=== PATIENT | male | born 1965 | race Caucasian/White ===

== ENCOUNTER 2020-10-17 09:44 | Inpatient (IN) | payer BC ==
[2020-10-17] VITALS (230 sets, daily range): BP systolic 98–163; BP diastolic 55–89; PULSE 138–164; TEMP 37.8; O2SAT 77–100
[~2020-10-17] VITALS: Ht 177.8 cm; Wt 77.3 kg
[~2020-10-17 09:44] MED LIST: CHANTIX 0.5MG0.5 MG PO; FISH OIL CONCEN1 SGL PO; GARLIC1 TAB PO; GINKO BILOBA120 MG PO; MULTIPLE VITAMI1 CAP PO; PRILOSEC10 MG; VITAMIN C PURE500 MG PO
[2020-10-17 10:10] LABS: HEMATOCRIT 38.3 % (42.0-52.0); HEMOGLOBIN 11.9 g/dl (13.5-18.0); MEAN CELL VOLUME 96 fl (80.0-100.0); MEAN CORPUSCULAR HEMOGLOBIN 30 pg (27.0-31.0); MEAN CORPUSCULAR HGB CONC 31 g/dl (33.0-37.0); MEAN PLATELET VOLUME 9.9 fl (7.4-10.4); PLATELET COUNT 224 K/mm3 (130-400); RED BLOOD COUNT 3.99 M/mm3 (4.20-5.60); REDCELL DISTRIBUTION WIDTH-CV 13.3 % (11.5-14.5)
--- NOTE | 2020-10-17 10:10 | NUR ---
SW note: Response to EMG SW gather patients identification from EMS SW made contact with Vida Clements. reports that the police called her to notify her of the patients attempt of SI. reports that she notified a friend and the patients co-worker/friend indicating a Rohit and Anuja. Spouse reports that she had no idea that the patient was contemplating SI. Information assimulated. address [address] [facility] [id number] BD: [id number] Interview with spouse will be recorded: in [place]
[2020-10-17 10:40] LABS: BAND 8 % (0-10); LYMPHOCYTE 28 % (20.0-51.0); METAMYELOCYTE 1 % (0-0); NEUTROPHILS 60 % (42.0-75.2)
[2020-10-17 10:43] LABS: HYPOCHROMIA 2+; PLATELET ESTIMATE NORMAL (NORMAL)
--- NOTE | 2020-10-17 10:53 | NUR ---
ORN notified of patient, referral number [id number].
--- NOTE | 2020-10-17 11:49 | NUR ---
Initial visit; Provided spiritual care to family when patient was brought in to Emergency Services. Laser/Electro Optics Technician offered comfort and prayer along with helping assist admissions gather additional information from patient's .
[2020-10-17 12:21] LABS: ALBUMIN 2.5 gm/dL (3.5-5.0); BILIRUBIN,TOTAL 0.3 mg/dL (0.0-1.0); CALCIUM 7.8 mg/dL (8.4-10.2); CREATININE, serum 1.51 (0.66-1.25); POTASSIUM 3.5 mmol/L (3.4-5.0); TOTAL PROTEIN 4.1 gm/dL (6.4-8.2)
--- NOTE | 2020-10-17 14:30 | NUR ---
IO CHENTE'D AT THIS TIME. PRESSURE DRESSING APPLIED.
[2020-10-17 14:55] LABS: ARTERIAL BLD GAS O2 SATURATION 91.5 % (92-100); ARTERIAL BLD GAS TCO2 CT 20.4; ARTERIAL BLOOD GAS HCO3 18.2 meq/L (22-26); ARTERIAL BLOOD GAS PO2 82.5 mmHg (80-100)
[2020-10-17 14:56] LABS: ARTERIAL BLOOD GAS PCO2 74.1 mmHg (35-45); ARTERIAL BLOOD GAS pH 7.01 (7.35-7.45)
[2020-10-17 16:08] LABS: ARTERIAL BLOOD GAS HCO3 18.4 meq/L (22-26); ARTERIAL BLOOD GAS PCO2 60.4 mmHg (35-45); ARTERIAL BLOOD GAS PO2 111.1 mmHg (80-100)
[2020-10-17 16:09] LABS: ARTERIAL BLD GAS O2 SATURATION 96.8 % (92-100); ARTERIAL BLD GAS TCO2 CT 20.3
[2020-10-17 16:46] LABS: HEMATOCRIT 22.2 % (42.0-52.0); HEMOGLOBIN 7.4 g/dl (13.5-18.0)
[2020-10-17 17:09] LABS: ARTERIAL BLD GAS O2 SATURATION 98.5 % (92-100); ARTERIAL BLD GAS TCO2 CT 17.5; ARTERIAL BLOOD GAS BASE EXCESS -10.1 (-2-2); ARTERIAL BLOOD GAS HCO3 16.3 meq/L (22-26); ARTERIAL BLOOD GAS PCO2 38.4 mmHg (35-45); ARTERIAL BLOOD GAS pH 7.25 (7.35-7.45)
[2020-10-17 17:10] LABS: ARTERIAL BLOOD GAS PO2 217.1 mmHg (80-100)
[2020-10-17 17:25] LABS: PARTIAL THROMBOPLASTIN TIME 45.2 SECONDS (26.0-37.0)
[2020-10-17 17:27] LABS: INR 1.8 (0.8-3.0); PROTHROMBIN TIME 20.4 SECONDS (9.7-12.8)
[2020-10-17 18:37] LABS: MAGNESIUM 2.7 mg/dL (1.6-2.3); PHOSPHOROUS 6.1 mg/dL (2.5-4.5)
[2020-10-17 18:56] LABS: COLLECTION METHOD CATHETER
[2020-10-17 19:23] LABS: MUCOUS Present /lpf; PH 5 (5-8); SQUAMOUS EPITHELIAL 0-2 /hpf; URINE APPEARANCE Cloudy; URINE BACTERIA Rare /hpf; URINE BILIRUBIN Negative (NEGATIVE); URINE BLOOD 3+ (NEGATIVE); URINE COLOR Yellow; URINE GLUCOSE Negative (NEGATIVE); URINE KETONE Negative (NEGATIVE); URINE LEUKOCYTE ESTERASE Negative (NEGATIVE); URINE NITRATE Negative (NEGATIVE); URINE PROTEIN(semi-quant) 1+ (NEGATIVE)
[2020-10-17 21:15] LABS: MEAN CORPUSCULAR HGB CONC 33 g/dl (33.0-37.0); MEAN PLATELET VOLUME 9.6 fl (7.4-10.4); PLATELET COUNT 146 K/mm3 (130-400); RED BLOOD COUNT 3.07 M/mm3 (4.20-5.60); REDCELL DISTRIBUTION WIDTH-CV 13.6 % (11.5-14.5)
[2020-10-17 21:19] LABS: HEMATOCRIT 26.9 % (42.0-52.0); HEMOGLOBIN 8.9 g/dl (13.5-18.0); MEAN CELL VOLUME 88 fl (80.0-100.0); MEAN CORPUSCULAR HEMOGLOBIN 29 pg (27.0-31.0)
[2020-10-17 21:24] LABS: INR 1.4 (0.8-3.0); PROTHROMBIN TIME 16.1 SECONDS (9.7-12.8)
[2020-10-17 21:26] LABS: PARTIAL THROMBOPLASTIN TIME 32.9 SECONDS (26.0-37.0)
[2020-10-17 21:28] LABS: ARTERIAL BLD GAS TCO2 CT 15.9; ARTERIAL BLOOD GAS BASE EXCESS -12.4 (-2-2); ARTERIAL BLOOD GAS HCO3 14.7 meq/L (22-26); ARTERIAL BLOOD GAS PCO2 38.4 mmHg (35-45)
[2020-10-17 21:29] LABS: ARTERIAL BLOOD GAS PO2 209.1 mmHg (80-100)
[2020-10-17 21:32] LABS: ALANINE AMINOTRANSFERASE 35 U/L (4-49); ALBUMIN 1.6 gm/dL (3.5-5.0); ALKALINE PHOSPHATASE 41 U/L (50-136); ANION GAP 3 mmol/L (7-16); AST,SGOT 91 U/L (15-37); BILIRUBIN,TOTAL 0.2 mg/dL (0.0-1.0); BLOOD UREA NITROGEN 18 mg/dL (9-20); CALCIUM 6.8 mg/dL (8.4-10.2); CARBON DIOXIDE 19 mmol/L (22-30); CHLORIDE 110 mmol/L (98-107); CREATININE, serum 1.29 (0.66-1.25); GLUCOSE 244 mg/dL (74-106); LACTATE DEHYDROGENASE 1101 U/L (313-618); LIPASE 62 U/L (23-300); MAGNESIUM 1.4 mg/dL (1.6-2.3); PHOSPHOROUS 3.9 mg/dL (2.5-4.5); SODIUM 133 mmol/L (137-145); TOTAL PROTEIN 2.9 gm/dL (6.4-8.2)
[2020-10-17 21:34] LABS: AMYLASE < 30 U/L (30-110)
[2020-10-17 21:39] LABS: FIBRINOGEN < 100 mg/dL (200-450)
--- NOTE | 2020-10-17 21:40 | NUR ---
1300- Retrieved pt from ED. Bedside report recieved. [facility] team is in route from at this time. On arrival the patient has the following gtts running Levophed @1mcg/kg/hr (289ml/hr) Phenylephrine 100mcg/min (75ml/hr) Vasopression 0.03U/min (12ml/hr) NS - 1ltr wide open+ 125hr Vent settings per RT documentation. Dr. Nunez called and he is on his way to assist in management of the patient. 1315 - VS 92/63, HR 130, RR - 26, 92% SPO2, T-92.5 1340 - Rectal temp shows 34.0C started warming with gymar body wrap. with goal to reach 37C 1345- RIJ central line placed by Dr. Nunez using the proper sterile technique. 1412- Phenylephrine gtt increase to 120mcg/min (90ml/hr) due to b/p 70/43 MAP 49 1424- Right femoral arterial line placed by Dr. Nunez. Opening pressure 92/41 MAP 63. [facility] team arrived at this time as well. 1439 - Changed Levophed to quad strength with Dr. Nunez order [facility] team took over gtt titrations. 1550 - gtts running at the following rates Phenylephrine 200mcg/min Levophed 2mcg/kg/min Vasopressin 0.04U/min T4- 20mcg/hr 1700 - Dressing changed to head wound with assist of Neyda with [facility] & Josette RN. Pressure dressing applied. Large amounts of brain tissue and blood removed with old dressing. Continue to attempt to rewarm. Current temp 35.8C
[2020-10-17 21:42] LABS: BILIRUBIN UNCONJUGATED 0.1 mg/dL (0.0-1.1)
[2020-10-17 21:52] LABS: BAND 26 % (0-10); LYMPHOCYTE 9 % (20.0-51.0); NEUTROPHILS 61 % (42.0-75.2); NUCLEATED RED BLOOD CELL 1 (0-6); PLATELET ESTIMATE NORMAL (NORMAL)
--- NOTE | 2020-10-17 22:00 | NUR ---
Report received from KISHA Myers. See assessment as charted. Neyda with MTN at bedside. TLC to R IJ Brown port = NS at 125 ml/hr & PRBCs Blue port = Neosynephrine at 100 mcg/min, Levophed at 1.8 mcg/kg/min & Vasopressin at 0.04 units/min White port = capped INT to R forearm with T4 infusing at 20 ml/hr.
--- NOTE | 2020-10-17 22:22 | NUR ---
1844 started 1st U PRBC through blood/fluid warmer. Warmer temp 42C. Temp rising to 37.0 during that unit of blood. Pt tolerated PRBC well. 2114- 2nd unit PRBC started. 2199- Bedside report given to Leanne Alvarez RN. Tubes and lines verified.
--- NOTE | 2020-10-17 23:00 | NUR ---
Timeline of events: 2240 - OG tube advanced to 62 cm. 2300 - Levophed decreased to 1.6 mcg/kg/min. BP 145/86.
[2020-10-18] VITALS (982 sets, daily range): BP systolic 99–172; BP diastolic 53–96; PULSE 98–132; TEMP 35.8–38.8; O2SAT 94–100
[2020-10-18 03:05] LABS: ARTERIAL BLD GAS O2 SATURATION 98.8 % (92-100); ARTERIAL BLD GAS TCO2 CT 13.6; ARTERIAL BLOOD GAS BASE EXCESS -12.9 (-2-2); ARTERIAL BLOOD GAS HCO3 12.7 meq/L (22-26); ARTERIAL BLOOD GAS PCO2 28.4 mmHg (35-45); ARTERIAL BLOOD GAS pH 7.27 (7.35-7.45)
[2020-10-18 03:06] LABS: ARTERIAL BLOOD GAS PO2 218.4 mmHg (80-100)
[2020-10-18 03:16] LABS: BASO % 0.2 % (0.0-2.0); EOS # 0.3 (0.0-0.7); EOS % 1.7 % (0-4.0); GRAN # 14.5 (1.4-6.5); GRAN % 80.8 % (42.2-75.2); LYMPH % 11.1 % (20.0-51.0); MEAN CELL VOLUME 88 fl (80.0-100.0); MEAN CORPUSCULAR HGB CONC 34 g/dl (33.0-37.0); MEAN PLATELET VOLUME 10.4 fl (7.4-10.4); MONO % 5.6 % (1.7-9.3); PLATELET COUNT 123 K/mm3 (130-400); RED BLOOD COUNT 2.93 M/mm3 (4.20-5.60); REDCELL DISTRIBUTION WIDTH-CV 13.9 % (11.5-14.5)
[2020-10-18 03:24] LABS: ALBUMIN 2.4 gm/dL (3.5-5.0); CALCIUM 7.1 mg/dL (8.4-10.2); CREATININE, serum 1.21 (0.66-1.25); HEMATOCRIT 25.7 % (42.0-52.0); HEMOGLOBIN 8.7 g/dl (13.5-18.0); MAGNESIUM 1.7 mg/dL (1.6-2.3); MEAN CORPUSCULAR HEMOGLOBIN 30 pg (27.0-31.0); PHOSPHOROUS 2.8 mg/dL (2.5-4.5); POTASSIUM 5.1 mmol/L (3.4-5.0)
[2020-10-18 03:29] LABS: INR 1.2 (0.8-3.0); PROTHROMBIN TIME 13.3 SECONDS (9.7-12.8)
[2020-10-18 03:45] LABS: BILIRUBIN UNCONJUGATED 0.3 mg/dL (0.0-1.1); BILIRUBIN,TOTAL 0.2 mg/dL (0.0-1.0)
--- NOTE | 2020-10-18 06:14 | NUR ---
10/18/20 Timeline of events: 0028 - Abdominal pressure 6. 0034 - Levophed decreased to 1.0 mcg/kg/min. BP 156/96 arterial. 0038 - Levophed increased to 1.2 mcg/kg/min. BP 137/87 arterial. 0040 - Levophed decreased to 1.0 mcg/kg/min. BP 154/96 arterial. 0058 - Levophed decreased to 0.9 mcg/kg/min. BP 159/72 arterial. 0100 - FFP unit #1 completed. 0113 - FFP unit #2 started. 0142 - Levphed decreased to 0.8 mcg/kg/min. BP 157/100 arterial. 0220 - FFP unit #2 completed. 0312 - NS 1000ml bolus started. 0328 - Insulin gtt started at this time. 2 unit bolus followed by gtt at 2 units/hour. 0348 - Levophed decreased to 0.7 mcg.kg/min. BP 129/72 arterial. 0352 - Levophed decreased to 0.6 mcg/kg/min. BP 163/90 arterial. Magnesium Sulfate 2 grams started via IV pump. 0410 - Insulin gtt increased to 4 units/hour. Glucose 235. NS bolus completed & maintenance NS off. 0538 - Levophed gtt decreased to 0.5 mcg/kg/min. BP 163/98 arterial. 0602 - Abdominal pressure = 4
--- NOTE | 2020-10-18 07:00 | NUR ---
REPORT RECEIVED FROM KISHA MOY. GARTHN RN, ESTER AT BEDSIDE.
--- NOTE | 2020-10-18 07:04 | NUR ---
Levophed decreased to 0.4 mcg/kg/min. BP 160/98 arterial.
--- NOTE | 2020-10-18 08:00 | NUR ---
MTN RNs SWITCH OFF. KISHA SHORT HERE TO ASSUME CARE FOR MTN
[2020-10-18 09:09] LABS: MEAN CELL VOLUME 84 fl (80.0-100.0); MEAN CORPUSCULAR HGB CONC 35 g/dl (33.0-37.0); MEAN PLATELET VOLUME 9.6 fl (7.4-10.4); PLATELET COUNT 99 K/mm3 (130-400); RED BLOOD COUNT 2.35 M/mm3 (4.20-5.60); REDCELL DISTRIBUTION WIDTH-CV 14.3 % (11.5-14.5)
[2020-10-18 09:12] LABS: HEMATOCRIT 19.7 % (42.0-52.0); HEMOGLOBIN 6.9 g/dl (13.5-18.0); MEAN CORPUSCULAR HEMOGLOBIN 29 pg (27.0-31.0)
[2020-10-18 09:19] LABS: ALBUMIN 2.1 gm/dL (3.5-5.0); ALKALINE PHOSPHATASE 36 U/L (50-136); ANION GAP 6 mmol/L (7-16); AST,SGOT 133 U/L (15-37); BILIRUBIN,TOTAL 0.3 mg/dL (0.0-1.0); BLOOD UREA NITROGEN 17 mg/dL (9-20); CALCIUM 7.5 mg/dL (8.4-10.2); CARBON DIOXIDE 22 mmol/L (22-30); CHLORIDE 105 mmol/L (98-107); CREATININE, serum 0.94 (0.66-1.25); GLUCOSE 174 mg/dL (74-106); LACTATE DEHYDROGENASE 892 U/L (313-618); LIPASE 17 U/L (23-300); MAGNESIUM 1.8 mg/dL (1.6-2.3); PHOSPHOROUS 2.6 mg/dL (2.5-4.5); POTASSIUM 4.7 mmol/L (3.4-5.0); SODIUM 133 mmol/L (137-145); TOTAL PROTEIN 3.6 gm/dL (6.4-8.2)
[2020-10-18 09:20] LABS: AMYLASE < 30 U/L (30-110)
[2020-10-18 09:22] LABS: INR 1.3 (0.8-3.0); PROTHROMBIN TIME 14.7 SECONDS (9.7-12.8)
[2020-10-18 09:23] LABS: PARTIAL THROMBOPLASTIN TIME 27.5 SECONDS (26.0-37.0)
[2020-10-18 09:25] LABS: ALANINE AMINOTRANSFERASE 85 U/L (4-49)
[2020-10-18 09:35] LABS: BILIRUBIN UNCONJUGATED 0.3 mg/dL (0.0-1.1)
[2020-10-18 09:51] LABS: ARTERIAL BLD GAS TCO2 CT 17.3; ARTERIAL BLOOD GAS BASE EXCESS -7.4 (-2-2); ARTERIAL BLOOD GAS HCO3 16.4 meq/L (22-26); ARTERIAL BLOOD GAS PCO2 26.6 mmHg (35-45); ARTERIAL BLOOD GAS pH 7.41 (7.35-7.45)
[2020-10-18 09:52] LABS: ARTERIAL BLOOD GAS PO2 265.4 mmHg (80-100)
[2020-10-18 10:51] LABS: ARTERIAL BLD GAS TCO2 CT 22.1; ARTERIAL BLOOD GAS BASE EXCESS -4.4 (-2-2); ARTERIAL BLOOD GAS HCO3 20.9 meq/L (22-26); ARTERIAL BLOOD GAS PCO2 39.5 mmHg (35-45); ARTERIAL BLOOD GAS pH 7.34 (7.35-7.45)
[2020-10-18 10:52] LABS: BAND 7 % (0-10); LYMPHOCYTE 13 % (20.0-51.0); NEUTROPHILS 77 % (42.0-75.2); PLATELET ESTIMATE NORMAL (NORMAL)
[2020-10-18 10:52] LABS: ARTERIAL BLOOD GAS PO2 299.1 mmHg (80-100)
[2020-10-18 11:27] LABS: ARTERIAL BLD GAS O2 SATURATION 95.5 % (92-100); ARTERIAL BLOOD GAS BASE EXCESS -4.9 (-2-2); ARTERIAL BLOOD GAS HCO3 24.7 meq/L (22-26); ARTERIAL BLOOD GAS PO2 98.6 mmHg (80-100)
[2020-10-18 11:28] LABS: ARTERIAL BLOOD GAS PCO2 76.6 mmHg (35-45); ARTERIAL BLOOD GAS pH 7.13 (7.35-7.45)
--- NOTE | 2020-10-18 11:30 | NUR ---
AT APPROX 11:10 PATIENT IS EVALUATED BY DR. MATTHEWS 11:12 VENTILATOR DISCONNECTED FROM PATIENT AND HE IS PLACED ON O2 AT 15 L/MIN VIA ET TUBE. 11:18 NEOSYNEPHRINE INCREASED PER MTN, RN ORDER FOR HYPOTENSION 11:20 NO EVIDENCE OF SPONTANEOUS BREATHING SEEN THE ENTIRE APNEA TEST. 11:[address] MATTHEWS ORDER AND PLACED BACK ON VENTILATOR AT PREVIOUS SETTINGS
--- NOTE | 2020-10-18 12:30 | NUR ---
BRONCHOSCOPY PERFORMED BY KISHA WOODS. WASHINGS SENT TO LAB FOR CULTURE AND GRAM STAIN
--- NOTE | 2020-10-18 13:45 | NUR ---
PATIENT TAKEN TO CT FOR CT ABDOMEN TO EVALUATE LIVER AND KIDNEYS.
[2020-10-18 15:14] LABS: BASO % 0.1 % (0.0-2.0); GRAN % 82.8 % (42.2-75.2); LYMPH # 1.2 (1.2-3.4); LYMPH % 9.8 % (20.0-51.0); MEAN CELL VOLUME 87 fl (80.0-100.0); MEAN CORPUSCULAR HGB CONC 34 g/dl (33.0-37.0); MEAN PLATELET VOLUME 9.9 fl (7.4-10.4); MONO # 0.8 (0.1-0.6); MONO % 6.8 % (1.7-9.3); PLATELET COUNT 71 K/mm3 (130-400); RED BLOOD COUNT 2.45 M/mm3 (4.20-5.60); REDCELL DISTRIBUTION WIDTH-CV 14.3 % (11.5-14.5)
[2020-10-18 15:15] LABS: HEMATOCRIT 21.2 % (42.0-52.0); HEMOGLOBIN 7.3 g/dl (13.5-18.0); MEAN CORPUSCULAR HEMOGLOBIN 30 pg (27.0-31.0)
[2020-10-18 15:28] LABS: INR 1.3 (0.8-3.0)
[2020-10-18 15:30] LABS: ALANINE AMINOTRANSFERASE 95 U/L (4-49); ALBUMIN 2.4 gm/dL (3.5-5.0); ALKALINE PHOSPHATASE 37 U/L (50-136); ANION GAP 5 mmol/L (7-16); AST,SGOT 137 U/L (15-37); BILIRUBIN,TOTAL 0.7 mg/dL (0.0-1.0); BLOOD UREA NITROGEN 19 mg/dL (9-20); CALCIUM 8.2 mg/dL (8.4-10.2); CARBON DIOXIDE 25 mmol/L (22-30); CHLORIDE 103 mmol/L (98-107); CREATININE, serum 0.86 (0.66-1.25); GLUCOSE 158 mg/dL (74-106); LACTATE DEHYDROGENASE 845 U/L (313-618); LIPASE 11 U/L (23-300); MAGNESIUM 1.7 mg/dL (1.6-2.3); PHOSPHOROUS 3.5 mg/dL (2.5-4.5); POTASSIUM 4.7 mmol/L (3.4-5.0); SODIUM 132 mmol/L (137-145)
[2020-10-18 15:32] LABS: AMYLASE < 30 U/L (30-110)
[2020-10-18 15:57] LABS: BILIRUBIN UNCONJUGATED 0.5 mg/dL (0.0-1.1); BILIRUBIN,DIRECT 0.1 mg/dL (0.0-0.4)
--- NOTE | 2020-10-18 18:00 | NUR ---
PLAN FOR OPERATING ROOM TIME OF 0400 TOMORROW MORNING FOR ORGAN PROCUREMENT. APPRENTICE ARCHITECT NOTIFIED.
--- NOTE | 2020-10-18 19:00 | NUR ---
ALL DRIP TITRATIONS DONE PER RECOMMENDATION OF [facility], RN.
--- NOTE | 2020-10-18 19:00 | NUR ---
Beside report given by KISHA Cesar. All gtts and tubing reviewed, POC reviewed. Plan for patient to go to organ procurement surgery at 0400. Will continue to monitor patient and review patient with [employer] underwear trimmer.
--- NOTE | 2020-10-18 21:23 | NUR ---
VASOPRESSIN TITRATED DOWN PER KILLEEN FASHION MODEL
[2020-10-19] VITALS (288 sets, daily range): BP systolic 91–112; BP diastolic 49–62; PULSE 95–96; TEMP 37.2; O2SAT 99–100
[2020-10-19 00:23] LABS: ALANINE AMINOTRANSFERASE 82 U/L (4-49); ALBUMIN 2.2 gm/dL (3.5-5.0); ALKALINE PHOSPHATASE 39 U/L (50-136); AMYLASE < 30 U/L (30-110); ANION GAP 4 mmol/L (7-16); AST,SGOT 96 U/L (15-37); BLOOD UREA NITROGEN 20 mg/dL (9-20); CALCIUM 7.8 mg/dL (8.4-10.2); CARBON DIOXIDE 25 mmol/L (22-30); CHLORIDE 104 mmol/L (98-107); CREATININE, serum 0.77 (0.66-1.25); GLUCOSE 155 mg/dL (74-106); LACTATE DEHYDROGENASE 725 U/L (313-618); LIPASE < 10 U/L (23-300); MAGNESIUM 1.8 mg/dL (1.6-2.3); PHOSPHOROUS 2.7 mg/dL (2.5-4.5); POTASSIUM 3.9 mmol/L (3.4-5.0); SODIUM 132 mmol/L (137-145); TOTAL PROTEIN 3.8 gm/dL (6.4-8.2)
[2020-10-19 00:24] LABS: MEAN CELL VOLUME 87 fl (80.0-100.0); MEAN CORPUSCULAR HGB CONC 35 g/dl (33.0-37.0); MEAN PLATELET VOLUME 10.2 fl (7.4-10.4); PLATELET COUNT 60 K/mm3 (130-400); RED BLOOD COUNT 2.34 M/mm3 (4.20-5.60); REDCELL DISTRIBUTION WIDTH-CV 14.3 % (11.5-14.5)
[2020-10-19 00:25] LABS: INR 1.3 (0.8-3.0); PROTHROMBIN TIME 14.5 SECONDS (9.7-12.8)
[2020-10-19 00:26] LABS: HEMATOCRIT 20.3 % (42.0-52.0); HEMOGLOBIN 7.1 g/dl (13.5-18.0); MEAN CORPUSCULAR HEMOGLOBIN 30 pg (27.0-31.0)
[2020-10-19 00:27] LABS: PARTIAL THROMBOPLASTIN TIME 28.5 SECONDS (26.0-37.0)
[2020-10-19 00:45] LABS: BAND 7 % (0-10); BILIRUBIN UNCONJUGATED 0.5 mg/dL (0.0-1.1); BILIRUBIN,DIRECT 0.1 mg/dL (0.0-0.4); BILIRUBIN,TOTAL 0.6 mg/dL (0.0-1.0); LYMPHOCYTE 7 % (20.0-51.0); NEUTROPHILS 84 % (42.0-75.2); PLATELET ESTIMATE DECREASED (NORMAL)
[2020-10-19 00:54] LABS: COLLECTION METHOD CATHETER
[2020-10-19 00:59] LABS: MUCOUS Present /lpf; PH 5 (5-8); SQUAMOUS EPITHELIAL None Seen /hpf; URINE APPEARANCE Hazy; URINE BACTERIA None Seen /hpf; URINE BILIRUBIN Negative (NEGATIVE); URINE BLOOD 2+ (NEGATIVE); URINE COLOR Yellow; URINE GLUCOSE Negative (NEGATIVE); URINE KETONE Negative (NEGATIVE); URINE LEUKOCYTE ESTERASE Negative (NEGATIVE); URINE NITRATE Negative (NEGATIVE); URINE PROTEIN(semi-quant) Negative (NEGATIVE); URINE RBC 20-50 /hpf; URINE UROBILINOGEN Negative (NEGATIVE)
--- NOTE | 2020-10-19 05:18 | NUR ---
PT organ procurement surgery scheduled for 0600.
--- NOTE | 2020-10-19 06:28 | NUR ---
PT leaves to organ procurement surgery at this time.
--- NOTE | 2020-10-19 09:45 | NUR ---
Body returned to ICU room 7 and mud analysis supervisor called to initiate transfer to medical research associate.
--- NOTE | 2020-10-19 12:25 | NUR ---
[facility] here to scrap picker body. Paperwork signed and copies made.
== END 2020-10-19 12:30 | disposition expired | DRG 604 ==
LOC: COL.ER 09:44 → ICU 13:10
PROVIDERS: Emergency Medicine; Internal Medicine Pulmonary Disease; ADMIT Family Medicine
PROC: 5A1945Z Respiratory Ventilation, 24-96 Consecutive Hours (ICD-10-PCS; principal; 2020-10-17)
PROC: 0BH17EZ Insertion of Endotracheal Airway into Trachea, Via Natural or Artificial Opening (ICD-10-PCS; 2020-10-17)
PROC: 02HV33Z Insertion of Infusion Device into Superior Vena Cava, Percutaneous Approach (ICD-10-PCS; 2020-10-17)
PROC: 03HY32Z Insertion of Monitoring Device into Upper Artery, Percutaneous Approach (ICD-10-PCS; 2020-10-17)
DX: S01.83XA Puncture wound without foreign body of other part of head, initial encounter (principal); S06.899A Other specified intracranial injury with loss of consciousness of unspecified duration, initial encounter; E87.4 Mixed disorder of acid-base balance; K21.9 Gastro-esophageal reflux disease without esophagitis; I95.9 Hypotension, unspecified; R06.81 Apnea, not elsewhere classified; Z20.828 Contact with and (suspected) exposure to other viral communicable diseases; R40.2432 Glasgow coma scale score 3-8, at arrival to emergency department; Z00.5 Encounter for examination of potential donor of organ and tissue
CPT/HCPCS: J0171; J0690; J1815; J2370; J2704; J3010; J3475; J7030; J7050; J7060; J7070; J7120; P9016; P9047